=== PATIENT | female | born 1975 | race African-American/Black ===

== ENCOUNTER 2016-11-30 10:21 | Emergency (ER) | payer BC ==
--- NOTE | ~2016-11-30 | CR127 ---
[facility] A Service of [facility] & [facility] RADIOLOGY TEXT RESULTS PATIENT: JENNY POLLARD LOCATION: [facility] : 77 UNIT #: [id number] AGE: [address]: Mariana Arvizu APRN SEX: F ORDER DR: [id number] [facility] [address] [place], [place] [address] [id number] E MR#: [id number] #: [id number] NAME: JENNY POLLARD : 1975 SEX: F STUDY DATE/TIME: 11/30/2016 9:42 UNIT: [facility] ROOM: STUDY DESCRIPTION: CR Foot Complete Min 3 View Rt Attending Physician: Mariana Arvizu A.P.R.N. Ordering Physician: Ed Eddie Marion M.D. Primary Care Physician: No Primary Care Physician MEDICAL IMAGING REPORT This report is preliminary unless electronic signature is present EXAM Right foot series, 11/30/2016. HISTORY Right heel pain. 3 days duration. Pain when walking. TECHNIQUE AP, lateral, and oblique radiographs of the right foot are presented. FINDINGS Normal bony mineralization. Alignment is normal. Appearance of the mid shafts of the proximal phalanges of digits 3 and 4 raise the possibility of old healed fractures or stress fractures. No indication of acute fracture. The appearance could simply be a projectional artifact. Small plantar calcaneal spur. No soft tissue defect, subcutaneous air, or radiodense foreign body. Dictated by... Anastacio Mckoy M.D. THIS IS AN ELECTRONICALLY VERIFIED REPORT Anastacio Mckoy M.D. at 12/01/2016 9:09 AM JA/joey TD: 11/30/2016 10:56 JOB #: [id number] MEDICAL IMAGING REPORT Page 1 of 1 COPY
== END 2016-11-30 11:29 | disposition home or self-care (01) ==
LOC: CED 10:21
DX: M76.61 Achilles tendinitis, right leg (principal); Z98.51 Tubal ligation status
CPT/HCPCS: 29540; 73630; 99283